=== PATIENT | female | born 2000 | race Caucasian/White ===

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

== ENCOUNTER → 2021-03-27 17:17 | Outpatient (CLI) | payer OTHER, SELFPAY | PROVIDERS: Visit Provider Nurse Practitioner | DX: Z20.822 Contact with and (suspected) exposure to COVID-19 (principal) | CPT/HCPCS: C9803; U0003; U0005 ==

== ENCOUNTER → 2021-05-27 22:54 | Outpatient (CLI) | payer OTHER, SELFPAY | PROVIDERS: Visit Provider Nurse Practitioner Family | DX: U07.1 COVID-19 (principal) | CPT/HCPCS: C9803; U0003; U0005 ==

== ENCOUNTER 2022-02-18 15:17 | Emergency (ER) | payer OTHER, SELFPAY ==
[2022-02-18 15:30] VITALS: BP 122/86; PULSE 116; RESP 20; TEMP 37.1; O2SAT 98; BMI 50.3
--- NOTE | 2022-02-18 15:54 | EXP.UTC ---
Discharge Plan Disposition Patient Disposition: Home, Self-Care Condition: Good Prescriptions Prescriptions: New azithromycin [Zithromax] 250 mg tablet 250 mg PO UD DOSE PK Qty: 6 0RF Rx Instructions: Take two (2) tablets today, then one (1) tablet days #2 thru #5 mtgjdgycuvhxgez-fezqwbyec-JM [Bromfed DM] 2-30-10 mg/5 mL Syrup 5 ml PO Q6H PRN (Reason: Cough) Qty: 240 0RF methylprednisolone 4 mg Tablets,Dose Pack 4 mg PO DIRECTED Qty: 21 0RF No Action Nexplanon 68 mg implant SUBDERMAL Referrals Follow up/Referrals: Provider,Referral, MD [Primary Care Provider] - See instructions Activity Restrictions/Add. Instructions Additional Instructions/Restrictions: Drink plenty of fluids. Take tylenol or ibuprofen for pain or fever. Take the medications as directed. Follow up with your regular doctor. GO TO THE ER FOR ANY WORSENING SYMPTOMS Don't start the oral steroids until tomorrow, since you had the shot here today. Clinical Impressions Clinical Impression: Pharyngitis, Laryngitis, Bronchitis Stand Alone Forms Stand Alone Forms: Work/School Release Instructions Patient Instructions: DI for Pharyngitis/Tonsillopharyngitis -- Adult, DI for Laryngitis Discharge ED Provider: Ric Lewis [facility] General Stated complaint: sore throat, cant talk Mode of Arrival: Ambulatory Source of Information: Patient Limitations: No Limitations Time Seen by Provider: 02/18/22 15:53 Description of Symptoms (Recalled from Triage Doc. by RN): PATIENT C/O LOSS OF VOICE, SORE THROAT, CONGESTION AND SLIGHT COUGH THAT STARTED WEDNESDAY HEENT Symptoms (Recalled from RN notes): Yes Resp Symptoms (Recalled from RN notes): No Skin Symptoms (Recalled from RN notes): No MS Symptoms (Recalled from RN notes): No Functional Status (Recalled from RN notes): WNL History of Present Illness Provider Complaint: She states that for the past 2 days she has had a worsening sore throat, voice hoarsness, chills, and malaise. Related Data Home Medications Medication Instructions Recorded Confirmed etonogestrel 68 mg subdermal subdermal 05/27/21 05/27/21 implant (Nexplanon) Previous Rx's Medication Instructions Recorded azithromycin 250 mg tablet 250 mg PO UD DOSE PK #6 tabs 10/12/22 (Zithromax) hqoftebdasyqgls-ewfdraaxnxwqfrf-FG 5 ml PO Q6H PRN Cough #240 mL 02/18/22 2 mg-30 mg-10 mg/5 mL oral syrup (Bromfed DM) methylprednisolone 4 mg tablets in 4 mg PO DIRECTED #21 tabs 02/18/22 a dose pack Allergies Allergy/AdvReac Type Severity Reaction Status Date / Time No Known Allergies Allergy Verified 05/27/21 13:11 Worker's Comp Is this a Worker's Comp case?: No PFSH PFSH Medical History Anxiety Depression Urinary tract infection Surgical History History of tonsillectomy History of tympanostomy tube placement Social History Smoking Status: Never smoker alcohol intake: never substance use type: denies use current occupational status: employed and student Travel in the last 8 weeks: None household members: family housing: house ROS Obtained: Yes All systems reviewed & no additional complaints except as documented Constitutional Constitutional: Reports chills and Reports fever(s) Eyes Eyes: Denies eye discharge ENT Ears, Nose, Mouth, and Throat: Reports as per HPI Cardiovascular Cardiovascular: Denies chest pain Respiratory Respiratory: Reports chest congestion, Reports cough, Denies stridor and Denies wheezing Gastrointestinal Gastrointestingal: Reports nausea; Denies abdominal pain, constipation, cramping, diarrhea or vomiting Musculoskeletal Musculoskeletal: Denies arthralgias Integumentary/Breasts Skin/Breast: Denies rash Neurologic Neurologic: Denies paresthesias Allergic/Imm
[2022-02-18 15:58] LABS: UTC Strep Screen (Rapid) Negative (Negative)
[2022-02-18 16:29] VITALS: BP 122/86; PULSE 116; RESP 20; TEMP 37.1; O2SAT 98
== END 2022-02-18 16:54 | disposition home or self-care (01) ==
PROVIDERS: Emergency Provider Nurse Practitioner Family
DX: J02.9 Acute pharyngitis, unspecified (principal); R05.9 Cough, unspecified; R53.81 Other malaise; Z20.822 Contact with and (suspected) exposure to COVID-19; F32.A Depression, unspecified; F41.9 Anxiety disorder, unspecified; Z79.52 Long term (current) use of systemic steroids; Z79.899 Other long term (current) drug therapy; Z79.3 Long term (current) use of hormonal contraceptives
CPT/HCPCS: 87880; 99213; C9803; G0463; U0003; U0005

== ENCOUNTER 2022-04-04 17:29 | Emergency (ER) | payer OTHER, SELFPAY ==
[2022-04-04 19:05] VITALS: BP 140/86; PULSE 120; RESP 19; TEMP 37.5; O2SAT 99; BMI 53.3
--- NOTE | 2022-04-04 19:25 | EXP.UTC ---
Discharge Plan Disposition Patient Disposition: Home, Self-Care Condition: Good Prescriptions Prescriptions: New azithromycin [Zithromax Z-Arsalan] 250 mg tablet See Rx Instructions .ROUTE .COMPLEX 5 Days Qty: 6 0RF Rx Instructions: For 250 mg dose pack: take 500 mg today (day 1), then 250 mg for 4 days (days 2-5) methylprednisolone [Medrol (Arsalan)] 4 mg tablets,dose pack See Rx Instructions .Route .COMPLEX 6 Days Qty: 21 0RF Rx Instructions: taper pack; guaifenesin [Mucinex] 600 mg tablet extended release 12hr 600 mg PO BID PRN (Reason: cough) Qty: 20 0RF No Action Nexplanon 68 mg implant 1 implant SUBDERMAL ONCE Referrals Follow up/Referrals: Provider,Referral, MD [Primary Care Provider] - See instructions Activity Restrictions/Add. Instructions Additional Instructions/Restrictions: *Monitor Temp, Over the counter Motrin or Tylenol as directed/as needed Tylenol every 4 hours and Motrin every 6 hours (as long as your family doctor has told you that you can take it) for fever or pain. and straight to ER if unable to lower temp less than 101.0 after medication given *Warm salt water gargles may help to soothe the throat *Throat Lozenges? *Warm fluids like tea with honey may help to soothe the throat? *Sleep elevated *Humidifier/Vaporizer Your throat swab was sent for culture. Those results are typically sent to your primary care. Be sure to follow up in 2-3 days with your family doctor/primary care physician if no improvement so they can review those result and treat if necessary. If you don?t have a primary care doctor, I recommend you get one but in the mean time, you will have to return to a walk in clinic Follow up IMMEDIATELY for new or worsening symptoms or no Noticeable improvement over the next 48-72 hours. 911 for difficulty breathing or swallowing You were tested for today for Upper Respiratory Panel with COVID19 your test result should be back in the next 24-48 hours, you may Check your results on the [facility] Clinical Impressions Clinical Impression: URI (upper respiratory infection) Stand Alone Forms Stand Alone Forms: Work/School Release Instructions Patient Instructions: DI for Sinusitis, Middle Ear Infection Discharge ED Provider: Deepti Flores [facility] [place] HPI General Stated complaint: Cough,Congestion,fever Mode of Arrival: Ambulatory Source of Information: Patient Limitations: No Limitations Time Seen by Provider: 04/04/22 19:26 Description of Symptoms (Recalled from Triage Doc. by RN): PATIENT C/O SORE THROAT, WEAKNESS, HEADACHE, NAUSEA, RUNNY NOSE AND COUGH SINCE THIS MORNING HEENT Symptoms (Recalled from RN notes): Yes Resp Symptoms (Recalled from RN notes): Yes Skin Symptoms (Recalled from RN notes): No MS Symptoms (Recalled from RN notes): No Functional Status (Recalled from RN notes): WNL History of Present Illness Provider Complaint: Patient states that she woke up this morning having cough, sore throat, sinus congestion and pressure and pain in both ears States that this evening she was chilling and had headache like she may have the flu or something Related Data Home Medications Medication Instructions Recorded Confirmed etonogestrel 68 mg subdermal 1 implant subdermal ONCE 05/27/21 04/04/22 implant (Nexplanon) control Previous Rx's Medication Instructions Recorded azithromycin 250 mg tablet See Rx Instructions PO .COMPLEX 5 04/04/22 (Zithromax Z-Arsalan) days #6 tabs guaifenesin 600 mg tablet, 600 mg PO BID PRN cough #20 tabs 04/04/22 extended release 12 hr (Mucinex) methylprednisolone 4 mg tablets in See Rx Instructions .Route 04/04/22 a dose pack (Medrol (Arsalan)) .COMPLEX 6 days #21 tabs Allergies Allergy/AdvReac Type Severity Reaction Status Date / Time No Known Allergies Allergy Verified 05/27/21 13:11 Worker's Comp Is this a Worker's Comp case?: No PFSH PFS Medical History (Upda
[2022-04-04 19:31] LABS: UTC Influenza A Antigen Negative (Negative); UTC Influenza B Antigen Negative (Negative)
[2022-04-04 19:40] VITALS: BP 140/86; PULSE 120; RESP 19; TEMP 37.5; O2SAT 99
[2022-04-04 19:50] LABS: Adenovirus,PCR Not Detected (NotDetected); Bordetella Pertussis Not Detected (NotDetected); Chlamydophila Pneumoniae, PCR Not Detected (NotDetected); Coronavirus 19, PCR Not Detected (NotDetected); Coronavirus 229E Not Detected (NotDetected); Coronavirus NL63 Not Detected (NotDetected); Coronavirus OC43 Not Detected (NotDetected); Coronovirus HKU1,PCR Not Detected (NotDetected); Human Metapneumovirus Not Detected (NotDetected); Influenza A, PCR Not Detected (NotDetected); Influenza AH1, 2009 Not Detected (NotDetected); Influenza AH1, PCR Not Detected (NotDetected); Influenza B, PCR Not Detected (NotDetected); Mycoplasma Pneumoniae, PCR Not Detected (NotDetected); Parainfluenza 1, PCR Not Detected (NotDetected); Parainfluenza 2, PCR Not Detected (NotDetected); Parainfluenza 3, PCR Not Detected (NotDetected); Parainfluenza 4, PCR Not Detected (NotDetected); Respiratory Syncytial Virus Not Detected (NotDetected); Rhinovirus/Enterovirus Not Detected (NotDetected)
[2022-04-04 23:58] LABS: Influenza AH3,PCR Detected (NotDetected)
== END 2022-04-04 19:43 | disposition home or self-care (01) ==
PROVIDERS: Emergency Provider Nurse Practitioner
DX: J06.9 Acute upper respiratory infection, unspecified (principal)
CPT/HCPCS: 87581; 87632; 87798; 87804; 99212; C9803; G0463; U0003; U0005

== ENCOUNTER 2022-12-04 18:57 | Emergency (ER) | payer OTHER, SELFPAY ==
[2022-12-04 18:58] VITALS: BP 146/80; PULSE 131; RESP 18; TEMP 36.8; O2SAT 99; BMI 50.2
--- NOTE | 2022-12-04 19:00 | EXP.UTC ---
Discharge Plan Disposition Patient Disposition: Home, Self-Care Condition: Good Prescriptions Prescriptions: New levofloxacin 500 mg tablet 500 mg PO DAILY Qty: 7 0RF Referrals Follow up/Referrals: Provider,Referral, MD [Primary Care Provider] - See instructions Activity Restrictions/Add. Instructions Additional Instructions/Restrictions: Take all antibiotics as prescribed until gone Return to ER if pain, fever, vomiting, etc Clinical Impressions Clinical Impression: UTI (urinary tract infection) Instructions Patient Instructions: DI for Urinary Tract Infection (UTI) Discharge ED Provider: [place] [facility] [place] General Stated complaint: back pain SOA Time Seen by Provider: 12/04/22 19:28 History of Present Illness Provider Complaint: Back pain, pelvic pain X 3-4 days. No fever. No hematuria. Feels pelvic pressure. LMP a few weeks ago. H/O UTI. No H/O pyelo or kidney stones. Onset (ago): day(s) (4) Location: back and pelvis Relieving factors: none Exacerbating factors: none Associated symptoms: denies other symptoms Treatments prior to arrival: none Related Data Previous Rx's Medication Instructions Recorded levofloxacin 500 mg tablet 500 mg PO DAILY #7 tabs 12/04/22 Allergies Allergy/AdvReac Type Severity Reaction Status Date / Time No Known Allergies Allergy Verified 09/15/22 15:12 [facility] Disclaimer: The information contained in this section may have been updated after the patient was seen, as this information can be updated by other users. Medical History Anxiety Depression Urinary tract infection Surgical History History of shoulder surgery History of surgery on wrist History of tonsillectomy History of tympanostomy tube placement Family History (Updated 09/15/22 @ 15:13 by OLIVER Randle) Diabetes Social History (Updated 09/15/22 @ 15:13 by OLIVER Randle) Smoking Status: Current every day smoker tobacco type: e-cigarettes alcohol intake: never substance use type: denies use current occupational status: employed and student Travel in the last 8 weeks: None household members: family housing: house ROS Obtained: Yes All systems reviewed & no additional complaints except as documented and Yes Systems reviewed as appropriate & no additional complaints except as documented Constitutional Constitutional: Reports system reviewed and no additional complaints, except as documented, Reports as per HPI, Reports body ache, Reports chills, Reports fever(s) and Reports headache(s) ENT Ears, Nose, Mouth, and Throat: Reports system reviewed and no additional complaints, except as documented, Reports as per HPI, Reports otalgia, Reports headache(s), Reports nasal congestion and Reports sinus pressure Cardiovascular Cardiovascular: Reports system reviewed and no additional complaints, except as documented and Reports as per HPI Respiratory Respiratory: Reports system reviewed and no additional complaints, except as documented and Reports as per HPI Genitourinary Female Genitourinary: Reports dysuria and Reports urinary frequency Musculoskeletal Musculoskeletal: Reports back pain Neurologic Neurologic: Reports headache(s) Physical Exam General General appearance: alert and in no apparent distress Head Head exam: atraumatic, normocephalic and normal inspection Eye Eye exam: Present normal appearance, PERRL and EOMI Chest Chest inspection: Present normal inspection and symmetric chest wall rise; Absent tenderness Respiratory Respiratory exam: Present normal lung sounds bilaterally; Absent respiratory distress Cardiovascular Cardiovascular exam: Present regular rate and normal rhythm; Absent JVD Abdominal Exam Abdominal exam: Present soft and normal bowel sounds; Absent distention, tenderness or guarding Back Exam Back exam: Present norm
[2022-12-04 19:35] VITALS: BP 146/80; PULSE 131; RESP 18; TEMP 36.8; O2SAT 99
== END 2022-12-04 19:37 | disposition home or self-care (01) ==
PROVIDERS: Emergency Provider Physician Assistant
DX: N39.0 Urinary tract infection, site not specified (principal); M54.59 Other low back pain; R10.2 Pelvic and perineal pain; F41.9 Anxiety disorder, unspecified; F32.A Depression, unspecified; F17.290 Nicotine dependence, other tobacco product, uncomplicated
CPT/HCPCS: 99212; 99214; G0463

== ENCOUNTER 2023-02-04 12:35 | Emergency (ER) | payer OTHER, SELFPAY ==
[2023-02-04 12:50] VITALS: BP 139/92; PULSE 114; RESP 18; TEMP 36.7; O2SAT 98; BMI 48.7
--- NOTE | 2023-02-04 12:51 | EXP.UTC ---
Discharge Plan Disposition Patient Disposition: Home, Self-Care Condition: Good Prescriptions Prescriptions: New eghpaewffiflrsr-aevvuvogz-UV [Bromfed DM] 2-30-10 mg/5 mL Syrup 5 ml PO Q6H PRN (Reason: Cough) Qty: 240 0RF amoxicillin-pot clavulanate 875-125 mg Tablet 1 tab PO Q12H Qty: 20 0RF methylprednisolone 4 mg Tablets,Dose Pack 4 mg PO DIRECTED Qty: 21 0RF guaifenesin [Mucinex] 600 mg tablet extended release 12hr 600 - 1,200 mg PO BIDP PRN (Reason: Congestion) Qty: 30 0RF albuterol sulfate [Ventolin HFA] 90 mcg/actuation HFA aerosol inhaler 2 puff inhalation Q6H PRN (Reason: shortness of breath or wheezing) Qty: 6.7 0RF No Action levofloxacin 500 mg tablet 500 mg PO DAILY Qty: 7 0RF Referrals Follow up/Referrals: Provider,Referral, MD [Primary Care Provider] - See instructions Activity Restrictions/Add. Instructions Additional Instructions/Restrictions: Drink plenty of fluids. Take tylenol or ibuprofen for pain or fever. Take the medications as directed. Follow up with your regular doctor. GO TO THE ER FOR ANY WORSENING SYMPTOMS Quarantine until you know the results of your covid-19 test. Notify your school or workplace of your results and follow their instructions regarding return to work/school. Clinical Impressions Clinical Impression: Acute bronchitis, Sinusitis, Exposure to 2019 novel coronavirus, Acute viral syndrome Stand Alone Forms Stand Alone Forms: Work/School Release Instructions Patient Instructions: Sinusitis, DI for Sinusitis, Coronavirus Disease 2019, Preventing the Spread of Coronavirus Discharge Instructions Discharge ED Provider: Ric Lewis [facility] General Stated complaint: congestion soa Time Seen by Provider: 02/04/23 12:51 History of Present Illness Provider Complaint: She states that she has had chest congestion, productive cough, sinus congestion, sore throat, fever, chills and body aches and fever for the past 1 week. She took a couple home covid-19 test that were negative, but 2 of her room mates have tested positive for covid-19 over the past 1 day. They have similar symptoms to what she is having. Related Data Previous Rx's Medication Instructions Recorded levofloxacin 500 mg tablet 500 mg PO DAILY #7 tabs 12/04/22 albuterol sulfate 90 mcg/actuation 2 puff inhalation Q6H PRN 02/04/23 aerosol inhaler (Ventolin HFA) shortness of breath or wheezing #6.7 grams amoxicillin 875 mg-potassium 1 tab PO Q12H #20 tabs 02/04/23 clavulanate 125 mg tablet ezfqluacvyyvcjq-qjpxdwsyquebada-GX 5 ml PO Q6H PRN Cough #240 mL 02/04/23 2 mg-30 mg-10 mg/5 mL oral syrup (Bromfed DM) guaifenesin 600 mg tablet, 600 - 1,200 mg PO BIDP PRN 02/04/23 extended release 12 hr (Mucinex) Congestion #30 tabs methylprednisolone 4 mg tablets in 4 mg PO DIRECTED #21 tabs 02/04/23 a dose pack Allergies Allergy/AdvReac Type Severity Reaction Status Date / Time No Known Allergies Allergy Verified 09/15/22 15:12 [facility] Disclaimer: The information contained in this section may have been updated after the patient was seen, as this information can be updated by other users. Medical History Anxiety Depression Urinary tract infection Surgical History History of shoulder surgery History of surgery on wrist History of tonsillectomy History of tympanostomy tube placement Family History (Updated 09/15/22 @ 15:13 by OLIVER Randle) Other Diabetes Social History (Updated 09/15/22 @ 15:13 by OLIVER Randle) Smoking Status: Current every day smoker tobacco type: e-cigarettes alcohol intake: never substance use type: denies use current occupational status: employed and student Travel in the last 8 weeks: None household members: family housing: house ROS Obtained: Yes All systems reviewed
[2023-02-04 13:25] VITALS: BP 139/92; PULSE 114; RESP 18; TEMP 36.7; O2SAT 98
== END 2023-02-04 13:25 | disposition home or self-care (01) ==
PROVIDERS: Emergency Provider Nurse Practitioner Family
DX: J20.9 Acute bronchitis, unspecified (principal); J01.90 Acute sinusitis, unspecified; B34.9 Viral infection, unspecified; F17.290 Nicotine dependence, other tobacco product, uncomplicated; F41.9 Anxiety disorder, unspecified; F32.A Depression, unspecified; Z20.822 Contact with and (suspected) exposure to COVID-19
CPT/HCPCS: 87635; 99212; 99214; G0463

== ENCOUNTER 2024-03-30 01:34 | Emergency (ER) | payer SELFPAY ==
--- NOTE | 2024-03-30 01:45 | ED_ITS ---
Discharge Plan Disposition Patient Disposition: Home, Self-Care Condition: Good Prescriptions Prescriptions: New bacitracin 500 unit/gram ointment 1 applic topical BID Qty: 56.8 0RF oxycodone 5 mg tablet 5 mg PO Q6H PRN (Reason: pain (scale score 7-10)) Qty: 12 0RF No Action levofloxacin 500 mg tablet 500 mg PO DAILY Qty: 7 0RF zbcgszjrnnxomrs-rusvkszjq-KC [Bromfed DM] 2-30-10 mg/5 mL Syrup 5 ml PO Q6H PRN (Reason: Cough) Qty: 240 0RF amoxicillin-pot clavulanate 875-125 mg Tablet 1 tab PO Q12H Qty: 20 0RF methylprednisolone 4 mg Tablets,Dose Pack 4 mg PO DIRECTED Qty: 21 0RF guaifenesin [Mucinex] 600 mg tablet extended release 12hr 600 - 1,200 mg PO BIDP PRN (Reason: Congestion) Qty: 30 0RF albuterol sulfate [Ventolin HFA] 90 mcg/actuation HFA aerosol inhaler 2 puff inhalation Q6H PRN (Reason: shortness of breath or wheezing) Qty: 6.7 0RF Referrals Follow up/Referrals: Provider,Referral, MD [Primary Care Provider] - See instructions Activity Restrictions/Add. Instructions Additional Instructions/Restrictions: You were evaluated in the ER and are appropriate for discharge at this time. Call the [facility] burn clinic first thing in the morning at [phone]. Schedule an appointment for immediate follow-up, tell them you were a consult from [facility] with Dr. Kang and were recommended to be seen immediately to evaluate the burn on your right hand. While awaiting your appointment, keep the burn clean and wrapped. Apply the bacitracin ointment followed by the oil gauze and then wrap in the white dressing. Do this twice daily. Each time you remove this dressing, wash your h ands gently with warm soapy water and allow it to dry completely before applying a new dressing. Take Tylenol, ibuprofen as needed for pain, do not exceed the recommended dose on the bottle, drink a glass of water and eat a snack each time you take these medications to avoid side effects. Return to the ER with new, worsening, or otherwise concerning symptoms. Clinical Impressions Clinical Impression: Second degree burn of right hand Stand Alone Forms Stand Alone Forms: Work/School Release Print Language Print Language: Nepalese Discharge ED Provider: Laina Cowart General Adult HPI General Chief complaint: Burn/Smoke Inhalation Stated complaint: oil burn R arm, 03/29 23:45 Time Seen by Provider: 03/30/24 01:37 History of Present Illness HPI narrative: 23-year-old female who is right-hand dominant with a history of asthma, depression, seasonal allergies, reflux presents to the ER with complaints of burn to her right forearm and hand. Patient reports she was at work when an oil fryer hose came unscrewed and splashed her right forearm/hand on the palmar aspect with hot oil. Patient has full sensation throughout and the area of burn is painful. She came to the ER for evaluation. She does have full range of motion of the hand and wrist with good sensation, small area of blistering. ROS otherwise negative Related Data Previous Rx's ?Medication ?Instructions ?Recorded levofloxacin 500 mg tablet 500 mg PO DAILY #7 tabs 12/04/22 albuterol sulfate 90 mcg/actuation 2 puff inhalation Q6H PRN 02/04/23 aerosol inhaler (Ventolin HFA) shortness of breath or wheezing #6.7 grams amoxicillin 875 mg-potassium 1 tab PO Q12H #20 tabs 02/04/23 clavulanate 125 mg tablet ahauquvbwxhsnpa-piktqfgsrjfvhbq-WT 5 ml PO Q6H PRN Cough #240 mL 02/04/23 2 mg-30 mg-10 mg/5 mL oral syrup (Bromfed DM) guaifenesin 600 mg tablet, 600 - 1,200 mg (1 - 2 x 600 mg) PO 02/04/23 extended release 12 hr (Mucinex) BIDP PRN Congestion #30 tabs methylprednisolone 4 mg tablets in 4 mg PO DIRECTED #21 tabs 02/04/23 a dose pack bacitracin 500 unit/gram topical 1 applic topical BID #56.8 grams 03/30/24 ointment oxycodone 5 mg tablet 5 mg PO Q6H PRN pain (scale score 03/30/24 7-10) #12 tabs Allergies Allergy/AdvReac Type Severity Reaction Status Date / Time No Known Allergies [facility]ergy [facility]04[facility]23 13:[facility] Dis[facility]: The information contained in this section may have been updated after the patient was seen, as this information can be updated by other users. Medical History Anxiety Depression Urinary tract infection Surgical History History of shoulder surgery History of surgery on wrist History of tonsillectomy History of tympanostomy tube placement Family History Other Diabetes Social History Smoking Status: Current every day smoker tobacco type: e-cigarettes alcohol intake: never substance use type: denies use current occupational status: employed and student Travel in the last 8 weeks: None household members: family housing: house Other Medical History Have you received the Flu Vaccine for this season: No Have you received the Pneumonia Vaccine: No ROS Obtained: Yes Systems reviewed as appropriate & no additional complaints except as documented Physical Exam General General appearance: alert, in no apparent distress and obese Head Head exam: atraumatic and normocephalic Eye Eye exam: Present PERRL and EOMI ENT ENT exam: Present mucous membranes moist Neck Neck exam: Present normal inspection and full ROM Chest Chest inspection: Present symmetric chest wall rise Respiratory Respiratory exam: Absent respiratory distress or stridor Cardiovascular Cardiovascular exam: Present regular rate and normal rhythm Extremities Exam Extremities exam: Present full ROM and tenderness (Tenderness to palpation over the areas of hurley on the palmar aspect of the right distal forearm and hand; neurovascularly intact over the burn and distal to the hurley, no circumferential burning) Neurological Exam Neurological exam: Present alert and oriented X3; Absent motor sensory deficit Psychiatric Psychiatric exam: Present normal affect and normal mood Skin Skin exam: Present warm, dry, erythema and other (Approximately 1% total body surface area first and second-degree burn on the right forearm and hand, palmar aspect, second-degree burn is on the distal anterior R forearm with 1 open blister, multiple closed blisters including the thenar eminence, first-degree burn on the palm, intertriginous areas) Medical Decision Making Medical Records Medical records reviewed: Yes I reviewed the patient's medical records. Screening: Per USPSTF and CDC recommendations, given the prevalence of disease in our region, it is our hospital?s policy to screen for HIV and viral Hepatitis for all patients aged 18 and over and those with ongoing risk factors. Tim Inquiry Pt receiving controlled substance: Yes (patient was going to be prescribed oxycodone but then refused it) Tim was queried for this patient: Yes Reference #:: [id number] Risks and benefits of using a controlled substance: were discussed with pt by me Comment: after discussion, patient refused the prescription for oxycodone Vital Signs: 03/30/24 01:49 Temperature 97.9 F Temperature Source Oral Pulse Rate [Left Radial] 77 Respiratory Rate 20 Blood Pressure [Right Arm] 106/67 L Blood Pressure Mean [Right Arm] 80 Blood Pressure Source [Right Arm] Automatic Cuff Blood Pressure Position [Right Arm] Sitting 02 Sat by Pulse Oximetry 98 Oxygen Delivery Method Room Air Orders (Tests/Meds): ED MEDICATIONS Discontinued Medications Generic Name Dose Route Start Last Admin Trade Name Freq PRN Reason Stop Dose Admin Acetaminophen 1,000 mg 03/30/24 01:47 03/30/24 02:02 Acetaminophen 500mg Tab PO 03/30/24 01:48 1,000 mg ONCE ONE Administration Bacitracin 5 each 03/30/24 01:41 03/30/24 02:30 Bacitracin Oint 0.9gm Udp TP 03/30/24 01:42 Not Given ONCE ONE Bacitracin 1 gm 03/30/24 02:15 03/30/24 02:29 Bacitracin Zinc Oint 30gm Tube TP 03/30/24 02:16 1 gm ONCE ONE Administration Ketorolac Tromethamine 30 mg 03/30/24 01:47 03/30/24 02:02 Ketorolac 30mg/Ml Vial IM 03/30/24 01:48 30 mg ONCE ONE Administration Oxycodone HCl 5 mg 03/30/24 01:47 03/30/24 02:02 Oxycodone 5mg Immediate Release Tablet PO 03/30/24 01:48 5 mg ONCE ONE Administration Medical Decision Narrative: In summary, this 23-year-old female presents to the emergency department today with oil burn to the right arm. On initial evaluation patient is hemodynamically stable, afebrile, approximately 1% total body surface area of first and second- degree burn on the right wrist and palm involving the intertriginous areas, seco nd-degree burn primarily involves the palmar aspect of the right wrist and thenar eminence, no areas of third-degree burning, no circumferential burning, neurovascularly intact throughout. Differential diagnosis includes but is not limited to varying degrees of burn, I considered possibility of circumferential burn which would increase concern for compartment syndrome but this is not present, patient is neurovascularly intact throughout, no findings of infection which is appropriate since this burn happened in the last 2 hours. I do not believe labs or imaging are indicated at this time. Since these hurley involve the patient's dominant hand and are over an area of high flexion/extension, I consulted [facility] burn team for further recommendations on management. I spoke with Dr. Jordan with trauma who referred me to Dr. Kang with the plastics team. They recommend topical treatment with bacitracin, Adaptic, and Kerlix dressing to be changed twice daily. Dr. Kang recommends patient to be provided narcotic pain medication for outpatient management until they are able to see the patient in clinic. He provided the clinic phone number which was given to the patient and her discharge paperwork. He stated she should call immediately for a clinic appointment as soon as possible and continue exchanging the dressings as directed until that time. Bacitracin, Adaptic, Kerlix were applied to the wound and patient was given instructions on applying these dressings and ointment. Bacitracin was provided to the patient as well as prescribed, she was also provided additional dressing materials. I recommended prescription for oxycodone but patient refused this stating it was not a medication she would take at home. She is going to continue taking Tylenol and ibuprofen. She was provided instructions for follow-up with the [facility] burn clinic including their phone number as well as instructions on dressing changes and wound management. She was given strict return precautions for the ER. She indicated understanding and the patient was discharged in stable condition. Critical Care Critical Care Time Critical Care Time: No
[2024-03-30 01:49] VITALS: BP 106/67; PULSE 77; RESP 20; TEMP 36.6; O2SAT 98; BMI 40.8
[2024-03-30] MEDS: ACETAMINOPHEN 500MG TAB 1000 MG PO (02:02)
[2024-03-30] MEDS: KETOROLAC 30MG/ML VIAL 30 MG IM (02:02)
[2024-03-30] MEDS: OXYCODONE 5MG IMMEDIATE RELEASE TABLET 5 MG PO (02:02)
[2024-03-30] MEDS: BACITRACIN ZINC OINT 30GM TUBE TP (02:29)
[2024-03-30 02:40] VITALS: BP 134/69; PULSE 69; RESP 18; TEMP 36.6; O2SAT 100
== END 2024-03-30 02:41 | disposition home or self-care (01) ==
PROVIDERS: Emergency Provider Emergency Medicine
DX: T23.201A Burn of second degree of right hand, unspecified site, initial encounter (principal); M79.641 Pain in right hand; M79.631 Pain in right forearm; X10.2XXA Contact with fats and cooking oils, initial encounter; Y93.89 Activity, other specified; Y92.89 Other specified places as the place of occurrence of the external cause
CPT/HCPCS: 96372; 99283; J1885